=== PATIENT | male | born 1990 | race Asian ===

== ENCOUNTER 2018-02-13 15:43 | Emergency (ER) | payer SELFPAY ==
[~2018-02-13] VITALS: Ht 172.7 cm; Wt 56.7 kg
[2018-02-13 15:53] VITALS: Ht 172.7 cm; Wt 56.7 kg
[2018-02-13 19:17] VITALS: BP 140/80
== END 2018-02-13 19:17 | disposition home or self-care (01) ==
LOC: ED 15:43
DX: S61.303A Unspecified open wound of left middle finger with damage to nail, initial encounter (principal); W50.0XXA Accidental hit or strike by another person, initial encounter; Y93.67 Activity, basketball; Y92.89 Other specified places as the place of occurrence of the external cause; Y99.8 Other external cause status
CPT/HCPCS: 90715; Q0092

== ENCOUNTER 2018-07-03 16:04 | Emergency (ER) | payer BC ==
[~2018-07-03] VITALS: Ht 172.7 cm; Wt 54.0 kg
[2018-07-03 16:23] VITALS: BP 150/87
== END 2018-07-03 17:20 | disposition left against medical advice (07) ==
LOC: ED 16:04
DX: Z53.21 Procedure and treatment not carried out due to patient leaving prior to being seen by health care provider (principal)

== ENCOUNTER 2020-04-02 01:56 | Emergency (ER) | payer BC ==
[~2020-04-02] VITALS: Ht 172.7 cm; Wt 56.7 kg
[2020-04-02 02:05] VITALS: Ht 172.7 cm; Wt 56.7 kg
[2020-04-02 03:04] LABS: BASOPHIL % 0.2 % (0-2); PLATELET COUNT 205 x10^3mcL (130-400); RED CELL DISTRIBUTION WIDTH 14.3 % (11.5-14.5)
[2020-04-02 03:43] LABS: CARBON DIOXIDE 28.3 mmol/L (21-32); CHLORIDE SERUM 103 mmol/L (98-107); GFR1 > 60 mL/min; GLUCOSE SERUM 166 mg/dL (74-106); POTASSIUM SERUM 3.8 mmol/L (3.5-5.1); SODIUM SERUM 139 mmol/L (136-145)
[2020-04-02 03:47] LABS: ALBUMIN 4.4 g/dL (3.4-5.0); ALKALINE PHOSPHATASE 64 U/L (46-116); ALT/SGPT 17 U/L (16-63); AST/SGOT 12 U/L (15-37); BILIRUBIN TOTAL 0.44 mg/dL (0.20-1.00); TOTAL PROTEIN, SERUM 7.1 g/dL (6.4-8.2)
[2020-04-02 05:06] VITALS: BP 113/76
== END 2020-04-02 05:06 | disposition home or self-care (01) ==
LOC: ED 01:56
PROVIDERS: Emergency Medicine
DX: H81.13 Benign paroxysmal vertigo, bilateral (principal); R73.9 Hyperglycemia, unspecified
CPT/HCPCS: 36415; J8597; Q0162